=== PATIENT | female | born 1995 | race Caucasian/White ===

== ENCOUNTER 2017-02-08 10:13 | Emergency (ER) | payer BC ==
[~2017-02-08] VITALS: Ht 154.9 cm; Wt 46.4 kg
[2017-02-08] MEDS ORDERED: AMOXICILLIN875 MG PO (10:23)
[2017-02-08] MEDS ORDERED: MAGIC MOUTH PO (10:51)
[2017-02-08] MEDS ORDERED: ZOVIRAX400 MG PO (10:51)
[2017-02-08 11:07] VITALS: BP 98/59; PULSE 78; TEMP 100
== END 2017-02-08 11:26 | disposition home or self-care (01) ==
LOC: COL.ER 10:13
DX: K12.1 Other forms of stomatitis (principal)